=== PATIENT | female | born 1985 | race Caucasian/White ===

== ENCOUNTER 2016-12-06 00:35 | Inpatient (IN) | payer OTHER ==
--- NOTE | ~2016-12-06 | HP ---
Unit #: [id number] #: [id number] Patient: TREY WALLACE [id number] [place] [address] [id number] MR#: [id number] NAME: TREY WALLACE ROOM: P208 Age: 31 Sex: F Admission Date: 12/06/2016 : 1985 Attending Physician: Rudi Perez M.D. Admitting Physician: Rudi Perez M.D. Primary Care Physician: Candy Chong M.D. HISTORY AND PHYSICAL HISTORY OF PRESENT ILLNESS Trey is a 31 year old admitted to [address] [place] [address] because of her polysubstance abuse which includes benzodiazepines and opioids. She has a history of IV drug use but nothing recently. PAST MEDICAL HISTORY Long history of poly-illicit substance abuse to include IV drugs. PAST SURGICAL HISTORY Oral. ALLERGIES Penicillin. SOCIAL HISTORY Smokes less than 1 pack per day. Denies alcohol. Admits to a long history of polysubstance abuse to include IV drugs. FAMILY HISTORY Medically noncontributory. REVIEW OF SYSTEMS CONSTITUTIONAL: No fever or chills. HEENT: Denies any sore throat, ear pain or runny nose. CARDIOVASCULAR: Denies chest pain, irregular heart rhythm or palpitations. CHEST: Denies shortness of breath or cough. No hemoptysis. GASTROINTESTINAL: Denies nausea, vomiting, diarrhea or chronic constipation. ENDOCRINE: Denies history of increased thirst or urination. No recent significant weight loss or gain. GENITOURINARY: Denies dysuria, frequency, or hematuria. SKIN: Denies any rashes. HEMATOLOGIC: Denies history of increased bleeding or bruising. MUSCULOSKELETAL: Denies any hot, swollen joints. No generalized muscle pain. NEUROLOGIC: Denies problems with vision or speech. No frequent, severe headaches. No numbness, tingling or weakness in any extremities. Denies loss of bladder or bowel control. CURRENT MEDICATIONS 1. Detox protocol. 2. Celexa 20 mg daily. Unit #: [id number] #: [id number] Patient: TREY WALLACE PHYSICAL EXAMINATION GENERAL: Alert, well-nourished, in no apparent distress. VITAL SIGNS: Blood pressure 100/54, heart rate 74, respirations 16, temperature 98.6. WEIGHT: 112. HEIGHT: 5 feet 2 inches. SKIN: Warm and dry without rash or lesion. HEENT: Normocephalic. TMs not viewed. Oral and nasal passages clear. Conjunctivae clear. PERRLA. EOMs intact. NECK: Supple without lymphadenopathy or thyromegaly. HEART: Regular rate and rhythm without murmur. LUNGS: Clear. ABDOMEN: Soft, nontender. : Not done. EXTREMITIES: No evidence of cyanosis, clubbing or edema. Moves all without focal deficit. NEUROLOGICAL: Grossly within normal limits. Cranial Nerves: II: Visual armijo are intact. III, IV AND : Extraocular movements are intact. Pupils are equal, round and reactive to light. V: Facial sensation is grossly normal. VII: Facial movements and expression are normal. VIII: Auditory acuity grossly intact. IX, X: Uvula is midline. Phonation is normal. XI: Patient shrugs shoulders and turns head normally. XII: Tongue protrudes in the midline. Sensory and Motor Function: Sensory and motor sensation is grossly normal. Motor: moves all extremities well. Coordination: Gait is normal. Deep Tendon Reflexes: Intact. IMPRESSION Psychiatric admission. RECOMMENDATIONS PSYCHIATRIC: Per psychiatrist. MEDICAL: See no contraindications to participate in facility's activities. MEDICAL PROGNOSIS Good. MEDICAL CONDITION Stable. Dictated by... Deidra Maguire PLaurenALauren-Tru. for Darline Cabrera/karly TD: 12/06/2016 19:51 JOB #: [id number] Unit #: [id number] #: [id number] Patient: TREY WALLACE HISTORY AND PHYSICAL Page 1 of 1 X Deidra Maguire HISTORY AND PHYSICAL
--- NOTE | ~2016-12-06 | PA ---
Unit #: [id number] #: [id number] Patient: TREY WALLACE [id number] [facility] [address] [place] [address] [id number] MR#: [id number] NAME: TREY WALLACE ROOM: P208 Age: 31 Sex: F Admission Date: 12/06/2016 : 1985 Date of Assessment: 12/06/2016 Attending Physician: Rudi Perez M.D. Admitting Physician: Rudi Perez M.D. Primary Care Physician: Candy Chong M.D. PSYCHIATRIC ASSESSMENT DATE OF SERVICE 12/06/2016. INFORMANTS The patient, reliable; OLOP, reliable. CHIEF COMPLAINT Opioid detox. HISTORY OF PRESENT ILLNESS Trey is a 31-year-old woman with a history of heroin use and also occasional benzodiazepines. She reported vague suicidal ideation with a plan to asphyxiate herself and was unable to contract for safety. She was readmitted for stabilization. PAST PSYCHIATRIC HISTORY The patient has been assessed at this hospital in the past and referred to outpatient care. She has been an inpatient and outpatient at [facility] in the past. She is not currently taking any psychiatric medications. FAMILY PSYCHIATRIC HISTORY The patient has cousins who suffer from alcoholism and chemical dependence. SOCIAL HISTORY The patient is a high school graduate with some college, who has been out of work since 2010. She is currently living with her mother and has significant financial difficulties. PAST MEDICAL HISTORY No chronic medical problems. MEDICATIONS None currently. ALLERGIES Penicillin. SUBSTANCE USE HISTORY As noted above. MENTAL STATUS EXAMINATION The patient presented as a disheveled woman who appeared her stated age. She stood 5 feet 10 inches tall, weight 112 pounds. Vital signs; Unit #: [id number] #: [id number] Patient: TREY WALLACE temperature 98.5, pulse 66, respirations were 16, and blood pressure 122/85. Her speech was spontaneous and easily understood. Her musculoskeletal examination was calm. Her mood was anxious with a congruent affect. She was alert and fully oriented. Her memory and concentration were fair to good. Her thought processes were goal directed with no active psychosis. She now denied active suicidal intent or plan and contracts for safety in the hospital. Insight and judgment were fair. Fund of knowledge and abstraction were fair. ASSETS AND LIABILITIES The patient is familiar with local resources and presents voluntarily for treatment. Liabilities include difficulty maintaining sobriety, unstable housing, and income. ADMITTING DIAGNOSES AXIS I: Opioid dependence, F11.23. AXIS II: No diagnosis. AXIS III: Opioid withdrawal. AXIS IV: AXIS V: PSYCHIATRIC PLAN The patient was admitted and placed on the opioid detox protocol. A physical examination and laboratory studies will be ordered and reviewed. Treatment goals are resolution of intoxication, improvement in insight, and improvement in coping skills. DISCHARGE PLANNING Follow up with chemical dependence programming in the community. ESTIMATED LENGTH OF STAY 5 days. Dictated by... Rudi Perez M.D. REINALDO/nigel TD: 12/12/2016 21:56 JOB #: [id number] PSYCHIATRIC ASSESSMENT Page 1 of 1 X Rudi Perez MD X PSYCHIATRIC ASSESSMENT
--- NOTE | ~2016-12-06 | DS ---
Unit #: [id number] #: [id number] Patient: TREY WALLACE [id number] [facility] [address] [place] [address] [id number] I MR#: [id number] NAME: TREY WALLACE ROOM: P208 Age: 31 Sex: F Admission Date: 12/06/2016 : 1985 Discharge Date: 12/07/2016 Attending Physician: Rudi Perez M.D. Primary Care Physician: Candy Chong M.D. DISCHARGE SUMMARY REASON FOR ADMISSION Trey is a 31-year-old woman, who presented reporting increasing difficulty with opioid detox. She initially claimed suicidal ideation, but denied this after admission. She was admitted for opioid detox. DIAGNOSTIC STUDIES LABORATORY RESULTS: Please see hospital chart. HOSPITAL COURSE The patient was admitted and placed on the opioid detox protocol. She enrolled briefly in psychotherapy groups and activities. The patient requested AMA discharge on the date of her discharge, and after speaking with the houseman, she said that she does not feel she needs any further treatment and is going to follow up with [facility]. She denied suicidal ideation, intent, or plan. She was not eligible for involuntary hospitalization, and therefore was granted discharge at her request. DISCHARGE DIAGNOSES AXIS I: Opioid dependence with withdrawal, uncomplicated, F11.23. AXIS II: Diagnosis deferred. AXIS III: Opioid withdrawal syndrome. AXIS IV: AXIS V: DISCHARGE INSTRUCTIONS Follow up with [facility]. DISCHARGE MEDICATIONS None. CONDITION AT DISCHARGE Improved. PROGNOSIS Fair if the patient maintains sobriety. DIET AND ACTIVITY Ad christiana. Dictated by... Unit #: [id number] #: [id number] Patient: TREY WALLACE Rudi Perez M.D. [facility]/nigel TD: 12/13/2016 01:51 JOB #: [id number] DISCHARGE SUMMARY Page 1 of 1 X Rudi Perez MD X DISCHARGE SUMMARY
--- NOTE | ~2016-12-06 | PN ---
Unit #: [id number] #: [id number] Patient: TREY WALLACE [id number] [facility] [address] [place] [address] [id number] I MR#: [id number] NAME: TREY WALLACE ROOM: P208 Age: 31 Sex: F Admission Date: 12/06/2016 : 1985 Attending Physician: Rudi Perez M.D. Admitting Physician: Rudi Perez M.D. Primary Care Physician: Darline Oconnell PROGRESS NOTES DATE 12/07/2016 DISCUSSION Trey had trouble sleeping last night and has active withdrawal symptoms including some cramping, sweating and nausea. She is alert and fully oriented today. Her memory and concentration are fair to good. Mood is anxious with a congruent affect. There is no evidence of psychosis and no SI. ASSESSMENT Opiate dependence. PLAN We will provide trazodone at bedtime and continue with detox protocol. Dictated by... Darline Greenberg/francisco TD: 12/07/2016 13:29 JOB #: [id number] [facility] PROGRESS NOTES Page 1 of 1 X Rudi Perez MD X PROGRESS NOTE
[2016-12-06 09:42] LABS: BASOPHIL# 0.1 X10e3 (0-0.3); BASOPHIL% 0.8 % (0-2.5); EOSINOPHIL# 0.7 X10e3 (0-0.7); EOSINOPHIL% 8.8 % (0.0-7.0); HEMATOCRIT 34.6 % (35.0-45.0); HEMOGLOBIN 11.4 gm/dL (12.0-16.0); LYMPHOCYTE# 3.1 X10e3 (1.0-3.5); LYMPHOCYTE% 40.8 % (17.0-45.0); MEAN CELL VOLUME 89.1 FL (83-96); MEAN CORPUSCULAR HEMOGLOBIN 29.3 PG (28-34); MEAN CORPUSCULAR HGB CONC 32.9 g/dL (30-36); MONOCYTE# 0.6 X10e3 (0-1.0); MONOCYTE% 7.2 % (3.0-12.0); NEUTROPHIL# 3.2 X10e3 (1.5-7.1); NEUTROPHIL% 42.4 % (40-75); PLATELET COUNT 198 X10e3 (140-420); RED BLOOD COUNT 3.88 X10e (3.90-5.30); RED CELL DISTRIBUTION WIDTH 13.3 % (11.0-15.5); WHITE BLOOD COUNT 7.7 X10e3 (4.0-10.5)
[2016-12-06 09:57] LABS: DIFF IND NO
[2016-12-06 10:12] LABS: ALBUMIN SERUM 3.3 g/dL (3.5-5.0); BILIRUBIN,TOTAL 0.5 mg/dL (0.2-2.0); BUN/CREATININE RATIO 18.75; CALCIUM SERUM 8.9 mg/dL (8.4-10.2); CREATININE SERUM 0.8 mg/dL (0.6-1.4); GLOM FILT RATE Estimated 98.3 mL/min (>60); POTASSIUM 4.4 mmol/L (3.5-5.1); PROTEIN TOTAL SERUM 6.1 g/dL (6.0-8.3)
== END 2016-12-07 23:09 | disposition left against medical advice (07) | DRG 894 ==
LOC: P2S 00:35
PROVIDERS: Psychiatry & Neurology Psychiatry
PROC: HZ2ZZZZ Detoxification Services for Substance Abuse Treatment (ICD-10-PCS; principal; 2016-12-06)
DX: F11.23 Opioid dependence with withdrawal (principal); Z88.0 Allergy status to penicillin
CPT/HCPCS: 80053; 84703; 85025; 86592

== ENCOUNTER 2017-03-05 04:00 | Inpatient (IN) | payer OTHER ==
--- NOTE | ~2017-03-05 | PN ---
Unit #: [id number] #: [id number] Patient: TREY WALLACE [id number] [facility] [address] [place] [address] [id number] I MR#: [id number] NAME: TREY WALLACE ROOM: [facility] Age: 31 Sex: F Admission Date: 03/05/2017 : 1985 Attending Physician: Rudi Perez M.D. Admitting Physician: Rudi Perez M.D. Primary Care Physician: Darline Oconnell PROGRESS NOTES DATE OF SERVICE: 03/06/2017 DISCUSSION Trey continues to have [id number] detox symptoms today. She has started on her antidepressant medication with no significant adverse side effects. She is alert and fully oriented. Her memory and concentration are intact. Her thought processes are logical with no active psychosis. She denied any active suicidal ideation today. ASSESSMENT Major depression, opioid dependence. PLAN Continue current treatment plan. Dictated by... Rudi Perez M.D. [facility]/nigel TD: 03/07/2017 15:34 JOB #: [id number] [facility] PROGRESS NOTES Page 1 of 1 X Rudi Perez MD PROGRESS NOTE
--- NOTE | ~2017-03-05 | DS ---
Unit #: [id number] #: [id number] Patient: TREY WALLAEC [id number] [place] [address] [id number] MR#: [id number] NAME: TREY WALLACE ROOM: [facility] Age: 31 Sex: F Admission Date: 03/05/2017 : 1985 Discharge Date: 03/07/2017 Attending Physician: Rudi Perez M.D. Primary Care Physician: Candy Chong M.D. DISCHARGE SUMMARY REASON FOR ADMISSION Trey is a 31-year-old woman with a previous admission to this facility, who reports relapse on oxymorphone tablets, heroin, and increasing depression with some suicidal ideation. She was admitted for stabilization. DIAGNOSTIC STUDIES LABORATORY RESULTS: Beta-hCG was negative. Please see other laboratory studies per chart. HOSPITAL COURSE The patient was admitted and placed on suicide precautions and the opioid detox protocol. Celexa 20 mg daily was initiated for treatment of depression and was well tolerated. The patient slept well and had showed a good appetite. On the date of discharge, she was able to contract for safety with no further suicidal ideation, intent, or plan and had completed detox safely. DISCHARGE DIAGNOSES AXIS I: Major depression; opioid dependence with withdrawal. AXIS II: No diagnosis. AXIS III: Opioid withdrawal syndrome. AXIS IV: AXIS V: DISCHARGE INSTRUCTIONS Follow up with [facility] the patient's choice and her primary care physician for mental health. DISCHARGE MEDICATIONS Celexa 20 mg daily for depression. CONDITION AT DISCHARGE Improved. PROGNOSIS Good. DIET AND ACTIVITY Per primary care doctor. Unit #: [id number] #: [id number] Patient: TREY WALLACE Dictated by... Darline Greenberg/nigel TD: 03/07/2017 15:29 JOB #: [id number] DISCHARGE SUMMARY Page 1 of 1 X Rudi Perez MD X DISCHARGE SUMMARY
--- NOTE | ~2017-03-05 | PA ---
Unit #: [id number] #: [id number] Patient: TREY WALLACE [id number] [facility] [address] [place] [address] [id number] MR#: [id number] NAME: TREY WALLACE ROOM: [facility] Age: 31 Sex: F Admission Date: 03/05/2017 : 1985 Date of Assessment: 03/05/2017 Attending Physician: Rudi Perez M.D. Admitting Physician: Rudi Perez M.D. Primary Care Physician: Candy Chong M.D. PSYCHIATRIC ASSESSMENT INFORMANTS Patient, reliable; [facility], reliable. CHIEF COMPLAINT Suicidal ideation and heroin use. HISTORY OF PRESENT ILLNESS Trey Wallace is a 31-year-old woman, with one previous admission to this facility for chemical dependence. She has continued to use oxymorphone tablets as well as heroin outside of the hospital and reports increasing depression and some suicidal ideation. She could not contract for safety and was readmitted for detox and further assessment. PAST PSYCHIATRIC HISTORY One previous admission in November of this year. She has also been inpatient and outpatient at [facility] in the past. She has never taken psychiatric medications. FAMILY PSYCHIATRIC HISTORY The patient has cousins, who suffer from alcoholism and chemical dependence. SOCIAL HISTORY The patient is a high school graduate with some college, but has been out of work since 2016. She has been living with her mother recently. PAST MEDICAL HISTORY No chronic medical problems. MEDICATIONS None currently. ALLERGIES Penicillin. SUBSTANCE USE HISTORY As noted above. MENTAL STATUS EXAMINATION Trey presented as a mildly disheveled woman, who appeared her stated age. She was polite and cooperative with the examination. Her speech was spontaneous and easily understood. Musculoskeletal examination was calm. Her mood was depressed with a congruent affect. She was alert and fully Unit #: [id number] #: [id number] Patient: TREY WALLACE oriented. Her memory and concentration were intact. Her thought processes were logical with no active psychosis. She did report suicidal ideation with a plan to overdose on heroin and could not contract for safety outside of the hospital. Insight and judgment were intact. Fund of knowledge and abstraction were intact. ASSETS AND LIABILITIES The patient knows local resources and presents voluntarily for treatment. Liabilities include difficulty maintaining sobriety and unstable income. ADMITTING DIAGNOSES AXIS I: Major depressive disorder, F33.2. Opioid dependence with withdrawal, uncomplicated, F11.23. AXIS II: No diagnosis. AXIS III: Opioid withdrawal syndrome. AXIS IV: AXIS V: PSYCHIATRIC PLAN The patient was admitted and placed on suicide precautions and the opioid detox protocol. We will initiate Celexa 20 mg daily for depression and monitor for response. She will enroll in dual diagnosis groups and activities. Physical examination and laboratory studies will be ordered and reviewed. TREATMENT GOALS Resolution of SI, establishment of sobriety, improvement in insight, and improvement in coping skills. DISCHARGE PLANNING Follow up with primary care physician and [facility]. ESTIMATED LENGTH OF STAY 5 days. Dictated by... Rudi Perez M.D. REINALDO/nigel TD: 03/05/2017 13:22 JOB #: [id number] PSYCHIATRIC ASSESSMENT Page 1 of 1 X Rudi Perez MD X PSYCHIATRIC ASSESSMENT
--- NOTE | ~2017-03-05 | HP ---
Unit #: [id number] #: [id number] Patient: TREY WALLACE [id number] [place] [address] [id number] MR#: [id number] NAME: TREY WALLACE ROOM: [facility] Age: 31 Sex: F Admission Date: 03/05/2017 : 1985 Attending Physician: Rudi Perez M.D. Admitting Physician: Rudi Perez M.D. Primary Care Physician: Candy Chong M.D. HISTORY AND PHYSICAL HISTORY OF PRESENT ILLNESS Trey is a 31 year old admitted to [address] [place] [address] because of her continued polysubstance abuse which includes IV heroin. PAST MEDICAL HISTORY Long history of polysubstance abuse to include IV drugs. PAST SURGICAL HISTORY Oral. ALLERGIES Penicillin. SOCIAL HISTORY Smokes one-half pack per day. Denies alcohol. Admits to long history of poly illicit substance abuse to include IV drugs. FAMILY HISTORY Medically noncontributory. REVIEW OF SYSTEMS CONSTITUTIONAL: No fever or chills. HEENT: Denies any sore throat, ear pain or runny nose. CARDIOVASCULAR: Denies chest pain, irregular heart rhythm or palpitations. CHEST: Denies shortness of breath or cough. No hemoptysis. GASTROINTESTINAL: Denies nausea, vomiting, diarrhea or chronic constipation. ENDOCRINE: Denies history of increased thirst or urination. No recent significant weight loss or gain. GENITOURINARY: Denies dysuria, frequency, or hematuria. SKIN: Denies any rashes. HEMATOLOGIC: Denies history of increased bleeding or bruising. MUSCULOSKELETAL: Denies any hot, swollen joints. No generalized muscle pain. NEUROLOGIC: Denies problems with vision or speech. No frequent, severe headaches. No numbness, tingling or weakness in any extremities. Denies loss of bladder or bowel control. CURRENT MEDICATIONS 1. Detox protocol. 2. Celexa 20 mg q. day. PHYSICAL EXAMINATION Unit #: [id number] #: [id number] Patient: TREY WALLACE GENERAL: Alert, well nourished. No apparent distress. VITAL SIGNS: Blood pressure 113/76, heart rate 80, respirations 16, and temperature 98.6. WEIGHT: 112. HEIGHT: 5 feet 2 inches. SKIN: Warm and dry without rash or lesion. HEENT: Normocephalic. TMs not viewed. Oral and nasal passages clear. Conjunctivae clear. PERRLA. EOMs intact. NECK: Supple without lymphadenopathy or thyromegaly. HEART: Regular rate and rhythm without murmur. LUNGS: Clear. ABDOMEN: Soft, nontender. : Not done. EXTREMITIES: No evidence of cyanosis, clubbing or edema. Moves all without focal deficit. NEUROLOGICAL: Grossly within normal limits. Cranial Nerves: II: Visual armijo are intact. III, IV AND : Extraocular movements are intact. Pupils are equal, round and reactive to light. V: Facial sensation is grossly normal. VII: Facial movements and expression are normal. VIII: Auditory acuity grossly intact. IX, X: Uvula is midline. Phonation is normal. XI: Patient shrugs shoulders and turns head normally. XII: Tongue protrudes in the midline. Sensory and Motor Function: Sensory and motor sensation is grossly normal. Motor: moves all extremities well. Coordination: Gait is normal. Deep Tendon Reflexes: Intact. IMPRESSION Psychiatric admission. RECOMMENDATIONS PSYCHIATRIC: Per psychiatrist. MEDICAL: I see no contraindication to participate in this facility's activities. MEDICAL PROGNOSIS Good. MEDICAL CONDITION Stable. Dictated by... Deidra Maguire PLaurenALauren-C. for Darline Cabrera/delmy TD: 03/06/2017 08:33 JOB #: [id number] Unit #: [id number] #: [id number] Patient: TREY WALLACE HISTORY AND PHYSICAL Page 1 of 1 X Deidra Maguire X HISTORY AND PHYSICAL
[2017-03-06 09:26] LABS: BASOPHIL% 0.9 % (0-2.5); EOSINOPHIL# 0.3 X10e3 (0-0.7); EOSINOPHIL% 6.4 % (0.0-7.0); HEMATOCRIT 38.1 % (35.0-45.0); HEMOGLOBIN 12.5 gm/dL (12.0-16.0); LYMPHOCYTE# 1.8 X10e3 (1.0-3.5); LYMPHOCYTE% 35.6 % (17.0-45.0); MEAN CELL VOLUME 86.6 FL (83-96); MEAN CORPUSCULAR HEMOGLOBIN 28.5 PG (28-34); MEAN CORPUSCULAR HGB CONC 32.9 g/dL (30-36); MEAN PLATELET VOLUME 8.8 FL (6.5-11.5); MONOCYTE# 0.3 X10e3 (0-1.0); MONOCYTE% 7.1 % (3.0-12.0); NEUTROPHIL# 2.5 X10e3 (1.5-7.1); PLATELET COUNT 176 X10e3 (140-420); RED BLOOD COUNT 4.39 X10e (3.90-5.30); RED CELL DISTRIBUTION WIDTH 14.3 % (11.0-15.5); WHITE BLOOD COUNT 4.9 X10e3 (4.0-10.5)
[2017-03-06 09:30] LABS: DIFF IND NO
[2017-03-06 09:53] LABS: ALBUMIN SERUM 3.6 g/dL (3.5-5.0); BILIRUBIN,TOTAL 0.8 mg/dL (0.2-2.0); CALCIUM SERUM 9.2 mg/dL (8.4-10.2); CREATININE SERUM 0.7 mg/dL (0.6-1.4); GLOM FILT RATE Estimated 115.5 mL/min (>60); POTASSIUM 4.8 mmol/L (3.5-5.1); PROTEIN TOTAL SERUM 6.5 g/dL (6.0-8.3)
== END 2017-03-07 13:05 | disposition home or self-care (01) | DRG 885 ==
LOC: P1S 07:18
PROVIDERS: Psychiatry & Neurology Psychiatry
PROC: HZ2ZZZZ Detoxification Services for Substance Abuse Treatment (ICD-10-PCS; principal; 2017-03-05)
DX: F33.9 Major depressive disorder, recurrent, unspecified (principal); F11.23 Opioid dependence with withdrawal; Z88.0 Allergy status to penicillin; Z81.1 Family history of alcohol abuse and dependence
CPT/HCPCS: 80053; 84703; 85025; 86592